=== PATIENT | male | born 1975 | race Caucasian/White ===

== ENCOUNTER → 2016-10-23 | Outpatient (REF) ==
--- NOTE | 2016-10-24 02:13 | REP ---
Clinical: Pain and disability. Technique: AP, lateral and open mouth views of the cervical spine. Findings: Alignment is maintained. The patient is status post anterior fusion at the C4 - C6 levels with normal appearance and positioning to the orthopedic hardware. Moderate early advanced degenerative disc disease at the C6-7 level noted. No acute fracture / compression injury or subluxation. Impression: Status post anterior fusion. Focal degenerative changes C6-7. Signed by Jay Burr MD 10/24/2016 02:05 A
--- NOTE | 2016-10-24 03:06 | REP ---
Clinical: Pain and disability. Technique: AP, lateral, coned-down views of the lumbosacral spine. Findings: Alignment and lordosis maintained. No acute fracture / compression injury or subluxation. Advanced degenerative changes at the L5-S1 level include osteophytosis, endplate sclerosis/irregularity and disc space narrowing along with hypertrophic facet changes. Moderate degenerative disc osteophyte complex noted at the L3-4 and L4-5 levels. Impression: Moderate to advanced multilevel degenerative changes. Signed by Jay Burr MD 10/24/2016 02:58 A
== END ==
LOC: M SMT 11:50
PROVIDERS: ATTEND Internal Medicine
DX: Z02.71 Encounter for disability determination (principal); M51.36 Other intervertebral disc degeneration, lumbar region